=== PATIENT | female | born 1980 | race American Indian/Alaskan Native ===

== ENCOUNTER 2017-02-22 10:31 | Emergency (ER) | payer OTHER, BC ==
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
[2017-02-22] MEDS ORDERED: ZOFRAN IM ONE (16:02)
[2017-02-22] MEDS ORDERED: MORPHINE IM ONE (16:02)
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
[2017-02-22 16:55] VITALS: BP 130/90
== END 2017-02-22 16:55 | disposition home or self-care (01) ==
LOC: ED 10:31
DX: S16.1XXA Strain of muscle, fascia and tendon at neck level, initial encounter (principal); S29.012A Strain of muscle and tendon of back wall of thorax, initial encounter; Z88.0 Allergy status to penicillin; Z88.2 Allergy status to sulfonamides; Z88.8 Allergy status to other drugs, medicaments and biological substances; V89.0XXA Person injured in unspecified motor-vehicle accident, nontraffic, initial encounter; Y93.89 Activity, other specified; Y92.89 Other specified places as the place of occurrence of the external cause; Y99.8 Other external cause status
CPT/HCPCS: 70450; 72070; 72125; 81025; 96372; 99284; J2270; J2405

== ENCOUNTER 2020-09-10 10:10 | Outpatient (CLI) | payer OTHER ==
--- NOTE | 2020-09-10 12:24 | XRay Report ---
RIGHT SHOULDER 3 VIEWS INDICATION / CLINICAL INFORMATION: RIGHT SHOULDER PAIN COMPARISON: None available. FINDINGS: BONES / JOINT(S): No acute fracture or subluxation. No significant arthritis. SOFT TISSUES: No significant abnormality. ADDITIONAL FINDINGS: None. Signer Name: Mike Bobo MD Signed: 09/10/2020 11:31 AM Workstation Name: [email or web address]
--- NOTE | 2020-09-10 12:30 | XRay Report ---
CERVICAL SPINE 3 VIEWS INDICATION / CLINICAL INFORMATION: BACK PAIN COMPARISON: None available. FINDINGS: BONES / JOINT(S): No acute fracture or subluxation. Minimal degenerative disc disease is scattered di ffusely. SOFT TISSUES: No significant abnormality. ADDITIONAL FINDINGS: None. Signer Name: Mike Bobo MD Signed: 09/10/2020 11:33 AM Workstation Name: [email or web address]
== END 2020-09-10 10:11 | disposition home or self-care (01) ==
LOC: XRAY 10:10
PROVIDERS: ATTEND Internal Medicine
DX: M50.30 Other cervical disc degeneration, unspecified cervical region (principal); M25.511 Pain in right shoulder
CPT/HCPCS: 72040